=== PATIENT | female | born 1950 | race Caucasian/White ===

== ENCOUNTER 2020-07-28 02:31 | Outpatient (CLI) | payer MEDICARE, OTHER, SELFPAY ==
[2020-07-28 23:12] LABS: SARS-CoV-2 RNA PCR Negative
== END 2020-07-28 02:32 | disposition home or self-care (01) ==
LOC: ANHCOVIDDT 02:31
PROVIDERS: PCP Student in an Organized Health Care Education/Training Program; Visit Provider Internal Medicine Gastroenterology
DX: Z01.812 Encounter for preprocedural laboratory examination (principal); Z20.828 Contact with and (suspected) exposure to other viral communicable diseases
CPT/HCPCS: 87635; C9803; U0003

== ENCOUNTER 2020-07-31 00:21 | Day surgery (SDC) | payer MEDICARE, OTHER, SELFPAY ==
[2020-07-25 10:20] VITALS: BMI 27.4
--- NOTE | 2020-07-25 14:26 | PC.NURSE ---
Patient preprocedure packet retrieved from Dr Chin's office. A time line was written out(copy in the EMR). Pt came in and i sat down with her and explained everything again st by step. Pt verbalized understanding. Pt anxious. Timeline, script for prep with preprocedure instructions given to pt. Pt to go immediately and fill script for Friday's prep.
--- NOTE | 2020-07-27 11:25 | PC.NURSE ---
PT CALLED LEFT MESSAGE CONCERNING COVID TESTING. CALLED PATIENT TO ANSWER ANY QUESTIONS- PT WAS QUESTIONING IF SHE HAD TO HAVE TEST DONE-THOUGHT SHE WAS TOLD IT WAS NOT REQUIRED FOR COLONOSCOPY. REVIEWED GUIDELINES WITH PATIENT, SHE HAD CONCERNS OF BEING EXPOSED DURING TESTING, REASSURED PT THAT STAFF IS USING ALL PROTOCOLS AND PRECAUTIONS FOR TESTING. REVIEWED TIME AND LOCATION WITH PATIENT AND PROCESS.
[2020-07-31 08:27] VITALS: BP 114/95; PULSE 82; RESP 16; TEMP 36.8; O2SAT 98; BMI 27.5
[2020-07-31] MEDS: LACTATED RINGERS 1,000 ML 150 ML IV CONT (08:38)
--- NOTE | 2020-07-31 08:41 | WPDGICN ---
Assessment and Plan Assessment and plan (1) Family history of colon cancer in mother: Code(s): Z80.0 - Family history of malignant neoplasm of digestive organs Status: Acute Assessment and Plan: Patient has family history of colon cancer in mother both and maternal uncle as well as several sisters have had colon polyps. Plan is for screening colonoscopy now and at least every 5 years in the future. GI Consult Note Consult date/time: 07/31/20 08:41 HPI: Alison Sykes is a 70 year old female Seen in evaluation at the request of Dr. Erin Villarreal. patient presents for screening colonoscopy. She states she has never had a colonoscopy. Family history is significant her mother and uncle both had colon cancer. Several sisters have had colon polyps. Patient states that her own weight appetite bowel movements are normal. She denies any blood in her stools. She has been in general good health otherwise. Review of Systems Review of Systems: All systems reviewed & are unremarkable except as noted in HPI and below PMFSH Social History Social History Smoking status: Never smoker Substance use: never Substance use type: does not use Living arrangements: alone Gender identity (if verbalized by the patient): Female Spiritual care concerns: No Meds Home Medications and Allergies Home Medications Medication Instructions Recorded Confirmed Type levothyroxine 75 mcg PO DAILY 07/25/20 07/25/20 History Allergies Allergy/AdvReac Type Severity Reaction Status Date / Time No Known Allergies Allergy Unknown Verified 07/31/20 08:26 Vital Signs Vital Signs - 24 hr 07/31/20 08:27 Temperature 98.2 F Pulse Rate 82 Respiratory Rate 16 Blood Pressure 114/95 H Pulse Oximetry 98 Exam Narrative: Exam Narrative: Physical exam reveals patient to be alert. Vital signs stable. HEENT exam unremarkable. Lungs are clear to auscultation and percussion. Heart is without murmur or extra sounds. Abdominal exam bowel sounds present soft nontender with no organomegaly. Digital external rectal exam normal.
--- NOTE | 2020-07-31 08:55 | WPDANESEPPF ---
Anes - Initial Pre Proc Eval Procedure: Operation Date: 07/31/20 09:30 Proposed Procedures p Screening Colonoscopy - Joseph Chin MD Date/Time: 07/31/20 08:55 Surgeon: Joseph Chin MD Pre Op Diagnosis: Family Hx Colon Ca Patient Data Age: 70 Gender: F Height: 5 ft 1 in Weight: 66.1 kg Last Vital Signs Temp 36.8 C 07/31/20 08:27 Pulse 82 07/31/20 08:27 Resp 16 07/31/20 08:27 BP 114/95 H 07/31/20 08:27 Pulse Ox 98 07/31/20 08:27 Allergies Allergy/AdvReac Type Severity Reaction Status Date / Time No Known Allergies Allergy Unknown Verified 07/31/20 08:26 Home Medications Medication Instructions Recorded Confirmed Type levothyroxine 75 mcg PO DAILY 07/25/20 07/25/20 History Patient hx anesthesia problems: none Family hx anesthesia problems: none PMFSH Past Medical History Medical History (Updated 07/31/20 @ 08:56 by Sb Jeffery MD) Hypothyroidism Overweight Social History Social History Smoking status: Never smoker Substance use: never Substance use type: does not use Living arrangements: alone Gender identity (if verbalized by the patient): Female Spiritual care concerns: No Anes - Eval Final PreProcedure Day of Procedure 07/31/20 08:55 Patient weight: overweight Heart: regular rate and rhythm Lungs: clear to auscultation Airway: Mallampati scale class II Neurological: alert and oriented Last oral intake: >/= 8 hours ASA classification: II Emergent: no Anesthetic plan: proceed Anesthesia type and monitoring: general GIVS and standard monitoring Informed Consent: The patient's anesthetic plan and its attendant risks and benefits were discussed with the patient/family/POA. Questions were solicited and answers provided to the satisfaction of the patient/family/POA.
[2020-07-31 10:04] VITALS: BP 114/95; PULSE 68; RESP 20; O2SAT 100
[2020-07-31 10:14] VITALS: BP 133/73; PULSE 66; RESP 20; O2SAT 100
== END 2020-07-31 10:44 | disposition home or self-care (01) ==
PROVIDERS: PCP Student in an Organized Health Care Education/Training Program; Visit Provider Internal Medicine Gastroenterology
PROC: 0DJD8ZZ Inspection of Lower Intestinal Tract, Via Natural or Artificial Opening Endoscopic (ICD-10-PCS; CPT 45378; principal; 2020-07-31 09:30)
DX: Z12.11 Encounter for screening for malignant neoplasm of colon (principal); K57.30 Diverticulosis of large intestine without perforation or abscess without bleeding; Z80.0 Family history of malignant neoplasm of digestive organs; E03.9 Hypothyroidism, unspecified
CPT/HCPCS: G0105; J2704; J7120

== ENCOUNTER 2022-05-14 08:58 | Outpatient (CLI) | payer MEDICARE, OTHER, SELFPAY ==
--- NOTE | ~2022-05-14 | MM_ITS ---
EXAMINATION: MM screening luz BI w moreno HISTORY: Screening mammogram TECHNIQUE: Craniocaudal and mediolateral oblique 3-D tomosynthesis images were obtained and synthetic 2-D images were generated. CAD analysis was submitted and interpreted. COMPARISON: 11/02/2015 bilateral screening mammogram BREAST PARENCHYMAL COMPOSITION: There are scattered areas of fibroglandular density. FINDINGS: There is no evidence of suspicious mass, calcification, or architectural distortion to sugg est malignancy in either breast. There has been no suspicious interval change. IMPRESSION: 1. No mammographic evidence of malignancy. 2. Recommend routine screening mammography in one year. BI-RADS Category 1: Negative Reviewed, dictated and finalized at location A.
== END 2022-05-14 08:59 | disposition home or self-care (01) ==
LOC: ANHIMG 09:07
PROVIDERS: PCP Student in an Organized Health Care Education/Training Program; Visit Provider Student in an Organized Health Care Education/Training Program
DX: Z12.31 Encounter for screening mammogram for malignant neoplasm of breast (principal)
CPT/HCPCS: 77063; 77067

== ENCOUNTER 2023-09-26 12:01 | Emergency (ER) | payer MEDICARE, OTHER, SELFPAY ==
[2023-09-26 12:20] VITALS: BP 139/86; PULSE 94; RESP 18; TEMP 35.9; O2SAT 100
--- NOTE | 2023-09-26 12:29 | ED.FEMALEGU ---
HPI - Female Genitourinary General Chief complaint: Urogenital-Female Stated complaint: unsteady, confusion Time Seen by Provider: 09/26/23 12:29 Source: patient Mode of arrival: ambulatory Limitations: no limitations History of Present Illness HPI Narrative: 73 yo F with hx of dementia presents with her son with c/o increased confusion, unstable gait over past few wks. Had appt with PCP today and it was cancelled. Rescheduled 4 days from now. PCP office told pt's son to bring her to to rule out UTI. Pt not having any UTI symptoms. She is well appearing. Oriented to herself. Does not know month but knows it will be ezio soon. She knows she is in a healthcare facility and that she lives in assisted living. Son states she has been calling family members on the phone stating she forgets why or where she is living or forgets that certain family members have . He states sometimes when walking she seems real wobbly. Today she ambulatory with steady gait. Does not use cane or walker. No facial droop or extremity weakness, normal speech. All systems reviewed and negative except as noted above. Related Data Home Medications Medication Instructions Recorded Confirmed levothyroxine 75 mcg tablet 75 mcg PO DAILY 07/25/20 09/26/23 atorvastatin 20 mg tablet 20 mg PO DAILY 09/26/23 09/26/23 empagliflozin 25 mg tablet mg 09/26/23 (Jardiance) metformin 500 mg tablet,extended mg PO 09/26/23 release 24 hr trazodone 50 mg tablet mg 09/26/23 Allergies Allergy/AdvReac Type Severity Reaction Status Date / Time No Known Allergies Allergy Unknown Verified 09/26/23 12:22 Review of Systems Review of Systems: CONSTITUTIONAL: Denies fever, chills, or sweats. EYES: Denies visual changes, redness, or discharge. ENT: Denies rhinorrhea, congestion, sore throat, or otalgia. CARDIOVASCULAR: Denies chest pain, palpitations, or edema. RESPIRATORY: Denies cough or dyspnea. GASTROINTESTINAL: Denies abdominal pain, nausea, vomiting, or diarrhea. GENITOURINARY: Denies dysuria or hematuria. SKIN: Denies rash or itching. MUSCULOSKELETAL: Denies back pain, joint pain, or myalgia. NEUROLOGIC: Denies headache, numbness, or weakness. PSYCHIATRIC: Denies anxiety or depression. All other systems reviewed are negative, except as documented in HPI. [facility] Past Medical History Medical History (Updated 09/26/23 @ 13:18 by Jyoti Abdalla NP) Hypothyroidism Overweight Social History Social History Smoking status: Never smoker Substance use: never Substance use type: does not use Living arrangements: alone Gender identity (if verbalized by the patient): Female Spiritual care concerns: No Comments At time of signature, agree with nursing past medical, surgical, social and family history. There is no relevant family history pertinent to the presenting complaint. Exam Narrative: GENERAL: This is a well-nourished, well-developed patient, in no apparent distress. HEAD: normocephalic, atraumatic. EYES: PERRL. Sclera clear/white. Vision is grossly intact. Extraocular motions intact. EARS: External ears normal, auditory canals clear and without drainage, TMs normal without perforation. Hearing grossly intact. NOSE: External nose normal NECK: Neck supple, non-tender without lymphadenopathy, masses or thyromegaly. CARDIOVASCULAR: Regular rate and rhythm without murmurs, gallops, or rubs. RESPIRATORY: Clear to auscultation. Breath sounds equal bilaterally. No wheezes, rales, or rhonchi. SKIN: warm, Dry, intact with no suspicious lesions or rash, good texture and turgor. NEURO: awake, alert, and oriented to person, place. There were no obvious focal neurologic abnormalities.All extremities 5/5 strength. Equal application internship. EXTREMITIES: No joint tenderness, effusion, or edema noted. No calf tenderness. Negative Homans sign bilaterally. Course Course Level of Care: Ex
--- NOTE | 2023-09-26 12:51 | PC.NURSE ---
1251 pt drinking 4th cup of water. waiting for patient to give a urine sample.
== END 2023-09-26 13:28 | disposition home or self-care (01) ==
PROVIDERS: Emergency Provider Nurse Practitioner Family; PCP Student in an Organized Health Care Education/Training Program
DX: F03.90 Unspecified dementia, unspecified severity, without behavioral disturbance, psychotic disturbance, mood disturbance, and anxiety (principal); E03.9 Hypothyroidism, unspecified; Z79.899 Other long term (current) drug therapy; Z79.84 Long term (current) use of oral hypoglycemic drugs
CPT/HCPCS: 81003; 87086; 87088; 99213; G0463

== ENCOUNTER 2025-06-30 13:35 | Emergency (ER) | payer MEDICARE, OTHER, SELFPAY ==
--- NOTE | ~2025-06-30 | CT_ITS ---
EXAMINATION: CT cervical spine wo con COMPARISON: None HISTORY: fall TECHNIQUE: Axial images were obtained through the spine without IV contrast. Coronal, sagittal reconstruction images were obtained from the axial views. CT scan performed using dose optimization techniques including the following automated exposure control; adjustment of mA and/or kV; use of iterative reconstruction technique. Automatic exposure control was used to reduce radiation dose. Permanent radiation dose record is archived to PACS. FINDINGS: Grade 1 anterolisthesis C3 on C4 and C4 on C5 and C7 on T1, no fracture is identified. Severe loss of disc height at C5-6 with moderate to severe canal and foraminal stenosis, outpatient MRI is recommended Soft tissues unremarkable. Impression: No acute abnormality. Reviewed, dictated and finalized at location A. Impression: No acute abnormality.
--- NOTE | ~2025-06-30 | CT_ITS ---
EXAMINATION: CT brain wo con DATE: 06/30/2025 14:19 INDICATION: Fall with head injury TECHNIQUE: Computed tomography (CT) of the head was performed without intravenous contrast. Sagittal and coronal reconstructions were performed. The mA was adjusted according to patient size. Iterative reconstruction technique was employed. The dose-length product was 605.33 mGy-cm. COMPARISON: Brain MR dated 07/19/2019 FINDINGS: No fracture. No acute intracranial hemorrhage, acute infarction or abnormal extra axial fluid collection. There is mild scattered white matter hypoattenuation consistent with chronic small vessel ischemic disease. Symmetric prominence of the sulci and ventricles consistent with moderate age-appropriate diffuse cerebral volume loss. Ventricles are normal and symmetric. No mass/mass effect. Mild mucosal thickening bilateral ethmoid sinuses and small mucous retention cyst in the right maxillary sinus. The orbits and mastoid air cells are normal. IMPRESSION: 1. No fracture or acute intracranial process. Line 2. Age-related changes including moderate diffuse volume loss and mild scattered white matter hypoattenuation consistent with chronic small vessel ischemic disease. Reviewed, dictated and finalized at location A. IMPRESSION: 1. No fracture or acute intracranial process. Line 2. Age-related changes including moderate diffuse volume loss and mild scattere d white matter hypoattenuation consistent with chronic small vessel ischemic di sease.
[2025-06-30 13:38] VITALS: BP 113/70; PULSE 100; RESP 16; TEMP 36.8; O2SAT 100
--- NOTE | 2025-06-30 13:49 | ED.FALL ---
HPI - Fall General Chief Complaint: Fall Stated Complaint: fall-unable to ambulate Time Seen by Provider: 06/30/25 13:38 Source: patient, EMS and RN notes reviewed History of Present Illness HPI Narrative: This is a 75-year-old female history of dementia, hyperlipidemia, hypothyroidism, diabetes who presents the ED for a fall. Per EMS, they were called to [facility] for patient having an unwitnessed fall this morning. Patient does not exactly remember what happened but denies any symptoms at this time. Denies any chest pain, shortness of breath, palpitations abdominal pain, headache, neck pain. Related Data Home Medications ?Medication ?Instructions ?Recorded ?Confirmed ?Last Taken ?Type levothyroxine 75 mcg tablet 75 mcg PO DAILY 07/25/20 10/08/23 07/31/20 History atorvastatin 20 mg tablet 20 mg PO DAILY 09/26/23 10/08/23 Unknown History empagliflozin 25 mg tablet mg 09/26/23 10/08/23 Unknown History (Jardiance) metformin 500 mg tablet,extended mg PO 09/26/23 10/08/23 Unknown History release 24 hr trazodone 50 mg tablet mg 09/26/23 10/08/23 Unknown History Allergies Allergy/AdvReac Type Severity Reaction Status Date / Time No Known Allergies Allergy Unknown Verified 09/26/23 12:22 Review of Systems Review of Systems: Gen.: Denies fevers or chills Eyes: Denies eye pain or visual change ENT: Denies congestion Respiratory: Denies shortness of breath or cough CV: Denies chest pain or palpitations GI: Denies abdominal pain nausea, emesis or diarrhea denies burning, urgency, frequency or hematuria Musculoskeletal: Denies back pain or muscle pain Neuro: Denies numbness, tingling, weakness or focal weakness Skin: Denies rash Except as documented, all other systems reviewed and negative [facility] Past Medical History Medical History Overweight Hypothyroidism Social History Social History Smoking status: Never smoker Substance use: never Substance use type: does not use Living arrangements: alone Gender identity (if verbalized by the patient): Female Spiritual care concerns: No Exam Narrative: APPEARANCE: No acute distress, nontoxic, resting in bed EYES: EOMI HEENT: Normocephalic, atraumatic, OMM RESPIRATORY: No respiratory distress Clear to auscultation bilaterally with no rhonchi wheezing or rales. CARDIOVASCULAR: Tachycardic and regular rhythm without murmurs rubs or gallops. ABDOMINAL: Soft, nontender, nondistended, no rebound or guarding MUSCULOSKELETAl: Moves all extremities. No obvious deformities. No C/T/L-spine tenderness to palpation, step-off deformities. NEURO: Awake and alert and oriented x2. Following commands, speech normal, no focal deficits SKIN:: Warm, dry. No rashes lesions or abrasions PSYCHIATRIC: Normal affect/mood, Course Vital Signs Vital signs: Vital Signs Temperature 98.2 F 06/30/25 13:38 Pulse Rate 100 06/30/25 13:38 Respiratory Rate 16 06/30/25 13:38 Blood Pressure 113/70 06/30/25 13:38 Pulse Oximetry 100 06/30/25 13:38 Oxygen Delivery Room Air 06/30/25 13:38 Temperature 98.2 F 06/30/25 13:38 Pulse Rate 91 06/30/25 15:35 Respiratory Rate 19 06/30/25 13:53 Blood Pressure 127/78 06/30/25 15:35 Pulse Oximetry 96 06/30/25 15:35 Oxygen Delivery Room Air 06/30/25 13:38 MDM - Fall MDM Narrative Medical decision making narrative: 75-year-old female who [facility] for a fall. On initial evaluation, patient was no acute distress afebrile and hemodynamically stable. There is no outward signs of trauma. Patient had no pain anywhere. CT head and C-spine showed no acute process. EKG was obtained given the slight tachycardia and showed no concerning findings. Tachycardia did improve to the mid 90s. Patient was deemed appropriate for discharge back to jail at this time. Differential Diagnosis Differential diagnosis: Likely other (fall, syncope, CHI, ICH, fracture) Medical Records Attestation: I reviewed the patient's medical records. Imaging Data Attestation: I personally reviewed and interpreted this imaging study as follows: (I reviewed the radiologist's interpretation) Radiologist's impression: Impressions Head CT 06/30/25 14:23 IMPRESSION: 1. No fracture or acute intracranial process. Line 2. Age-related changes including moderate diffuse volume loss and mild scattered white matter hypoattenuation consistent with chronic small vessel ischemic disease. Cervical Spine CT 06/30/25 14:24 Impression: No acute abnormality. ECG Data EKG #1: ECG completion date: 06/30/25 ECG completion time: 14:41 Interpretation: Sinus tachycardia rate of 102, normal axis, normal intervals, no acute ST or T-wave changes Discharge Plan Discharge Clinical Impression: Fall Qualifiers: Encounter type: initial encounter Qualified Code(s): W19.XXXA - Unspecified fall, initial encounter Dementia Qualifiers: Dementia type: unspecified type Dementia severity: moderate Dementia behavioral or psychological symptom: without behavioral, psychotic, or mood disturbance or anxiety Qualified Code(s): F03.B0 - Unspecified dementia, moderate, without behavioral disturbance, psychotic disturbance, mood disturbance, and anxiety Patient Disposition: Home Condition: Stable Instructions: Antibiotic Form, Fall Prevention (ED) Additional Instructions: Follow up with her PCP in the next week for re-evaluation. Return to the ED for any new or worsening symptoms. Patient Language: Dutch Prescriptions: No Action atorvastatin 20 mg tablet 20 mg PO DAILY trazodone 50 mg tablet metformin 500 mg tablet extended release 24 hr PO Jardiance 25 mg tablet levothyroxine 75 mcg Tablet 75 mcg PO DAILY Follow-up/Referrals: Cherelle,DO Ras [Primary Care Provider]
[2025-06-30 13:53] VITALS: PULSE 100; RESP 19; O2SAT 95
--- NOTE | 2025-06-30 14:04 | ECG_ITS ---
Test Date: 2025-06-30 14:41:32 Measurements Intervals Register Rate: 102 P: 5 DC: 167 QRS: -18 QRSD: 69 T: 19 QT: 332 QTc: 434 Interpretive Statements SINUS TACHYCARDIA ABNORMAL RHYTHM ECG No previous ECG available for comparison Electronically Signed On 07-01-2025 15:06:29 CDT by Sebas Arredondo M.D.
[2025-06-30 15:35] VITALS: BP 127/78; PULSE 91; O2SAT 96
== END 2025-06-30 16:10 | disposition home or self-care (01) ==
PROVIDERS: Emergency Provider Student in an Organized Health Care Education/Training Program; PCP Student in an Organized Health Care Education/Training Program
DX: Z04.3 Encounter for examination and observation following other accident (principal); F03.B0 Unspecified dementia, moderate, without behavioral disturbance, psychotic disturbance, mood disturbance, and anxiety; E78.5 Hyperlipidemia, unspecified; E03.9 Hypothyroidism, unspecified; E11.9 Type 2 diabetes mellitus without complications; W19.XXXA Unspecified fall, initial encounter
CPT/HCPCS: 70450; 72125; 93005; 99284